=== PATIENT | male | born 1985 ===

== ENCOUNTER 2020-07-07 21:50 | Emergency (ER) | payer SELFPAY ==
[2020-07-07 22:50] VITALS: BP 120/83
--- NOTE | 2020-07-08 01:26 | Cat Scan Report ---
CT FACIAL BONES WO CON INDICATION / CLINICAL INFORMATION: Facial trauma during a soccer game, nosebleed and slight deformity . TECHNIQUE: All CT scans at this location are performed using CT dose reduction for ALARA by means of automated exposure control. COMPARISON: None available. FINDINGS: There is an acute, mildly comminuted fracture of the nasal bone bilaterally with mild deviation to th e left. There is mild mucosal thickening involving multiple ethmoid air cells bilaterally. There is m ild mucosal thickening involving both maxillary antra inferiorly. No air-fluid levels are seen. The m astoid air cells are clear. No other facial bone fractures are identified. The orbits are intact. IMPRESSION: Acute, mildly comminuted fracture of the nasal bone with mild deviation to the left. Signer Name: Silver Fofana MD Signed: 07/08/2020 1:22 AM Workstation Name: [id number]
--- NOTE | 2020-07-08 03:05 | Emergency Department Report ---
ED General Adult HPI - General Chief complaint: Nosebleed Stated complaint: NOSE INJURY Source: patient Mode of arrival: Ambulatory Limitations: No Limitations - History of Present Illness Initial comments: Patient is a 34-year-old male with no past medical history presents to the ED with acute onset persistent nosebleed with mildly swollen and deformed nose after being elbowed on the face during a soccer match about 3 hours ago. Patient states that he immediately started having persistent nosebleed which has since resolved on arrival in the ED. Patient states that the only time he feels pain is when the nose is palpated, but otherwise he denies any pain. Patient states that he has previously fractured his nasal bones and had to undergo surgery. Patient denies loss of consciousness, facial pain, dizziness, syncope, headache, shortness of breath, dental injuries, change in vision, nausea and vomiting, neck pain, back pain or lightheadedness. MD Complaint: Nosebleed; nasal swelling -: Sudden, hour(s) (3) Location: face Radiation: non-radiation Severity scale (0 -10): 1 Quality: dull Consistency: intermittent Improves with: rest Worsens with: other (palpation) Associated Symptoms: denies other symptoms. denies: confusion, chest pain, cough, diaphoresis, fever/chills, headaches, loss of appetite, malaise, nausea/vomiting, rash, seizure, shortness of breath, syncope, weakness Treatments Prior to Arrival: none - Related Data Previous Rx's Medication Instructions Recorded Last Taken Type Amoxicillin/Potassium Clav 1 each PO Q12H #20 tablet 07/08/20 Unknown Rx [Augmentin 875-125 Tablet] Ibuprofen [Motrin] 800 mg PO Q8HR PRN #30 tablet 07/08/20 Unknown Rx Allergies Allergy/AdvReac Type Severity Reaction Status Date / Time No Known Allergies Allergy Unverified 07/07/20 22:49 ED Review of Systems ROS: Stated complaint: NOSE INJURY Other details as noted in HPI Constitutional: denies: chills, fever Eyes: denies: eye pain, eye discharge, vision change ENT: epistaxis, other (nasal swelling). denies: ear pain, throat pain, dental pain Respiratory: denies: cough, shortness of breath, wheezing Cardiovascular: denies: chest pain, palpitations Endocrine: no symptoms reported Gastrointestinal: denies: abdominal pain, nausea, diarrhea Genitourinary: denies: urgency, dysuria Musculoskeletal: denies: back pain, joint swelling, arthralgia Skin: denies: rash, lesions Neurological: denies: headache, weakness, paresthesias Psychiatric: denies: anxiety, depression Hematological/Lymphatic: denies: easy bleeding, easy bruising ED Past Medical Hx - Past Medical History Previous Medical History?: No - Medications Home Medications: Home Medications Medication Instructions Recorded Confirmed Last Taken Type Amoxicillin/Potassium Clav 1 each PO Q12H #20 tablet 07/08/20 Unknown Rx [Augmentin 875-125 Tablet] Ibuprofen [Motrin] 800 mg PO Q8HR PRN #30 tablet 07/08/20 Unknown Rx ED Physical Exam - General Limitations: No Limitations General appearance: alert, in no apparent distress - Head Head exam: Present: atraumatic, normocephalic, normal inspection - Eye Eye exam: Present: normal appearance, PERRL, EOMI Pupils: Present: normal accommodation - ENT ENT exam: Present: mucous membranes moist, TM's normal bilaterally, normal external ear exam, other (Mildly swollen and deviated nose with mild tenderness to palpation; nosebleed resolved) - Neck Neck exam: Present: normal inspection, full ROM - Respiratory Respiratory exam: Present: normal lung sounds bilaterally. Absent: respiratory distress, wheezes, rales, rhonchi, chest wall tenderness, accessory muscle use, decreased breath sounds, prolonged expiratory - Cardiovascular Cardiovascular Exam: Present: regular rate, normal rhythm, normal heart sounds. Absent: systolic murmur, diastolic murmur, rubs, gallop - GI/Abdominal GI/Abdominal exam: Present: soft, normal bowel sounds. Absent: tenderness, guarding, rebound, hyperactive bowel sounds, hypoactive bowel sounds, organomegaly - Extremities Exam Extremities exam: Present: normal inspection, full ROM, normal capillary refill - Back Exam Back exam: Present: normal inspection, full ROM. Absent: tenderness, CVA tenderness (R), CVA tenderness (L), muscle spasm - Neurological Exam Neurological exam: Present: alert, oriented X3, CN II-XII intact, normal gait, reflexes normal - Psychiatric Psychiatric exam: Present: normal affect, normal mood - Skin Skin exam: Present: warm, dry, intact, normal color. Absent: rash ED Course Vital Signs 07/07/20 22:49 Temperature 98 F Pulse Rate 86 Respiratory 18 Rate Blood Pressure 120/83 [Right] O2 Sat by Pulse 100 Oximetry - Reevaluation(s) Reevaluation #1: 07/08/20 03:11 I paged and discussed the patient's case with the ENT physician on-call at [facility] Dr. Mikel Baumann who advised that the patient may need to follow-up with a plastic surgeon in his department Dr Cuong Elliott as an outpatient for further evaluation the next 3 to 5 days. 07/08/20 03:23 ED Medical Decision Making - Radiology Data Radiology results: report reviewed, image reviewed [facility] [address] [place] [address] Cat Scan Report Signed Patient: LEIGH ANN MEEKS MR#: [id number] [birth year] : 1985 Acct:[id number] Age/Sex: 34 / M ADM Date: 07/07/20 Loc: ED Attending Dr: Ordering Physician: SEVERINO NEAL Date of Service: 07/08/20 Procedure(s): CT facial bones wo con Accession Number(s): [id number] cc: SEVERINO NEAL CT FACIAL BONES WO CON INDICATION / CLINICAL INFORMATION: Facial trauma during a soccer game, nosebleed and slight deformity. TECHNIQUE: All CT scans at this location are performed using CT dose reduction for ALARA by means of automated exposure control. COMPARISON: None available. FINDINGS: There is an acute, mildly comminuted fracture of the nasal bone bilaterally with mild deviation to the left. There is mild mucosal thickening involving multiple ethmoid air cells bilaterally. There is mild mucosal thickening involving both maxillary antra inferiorly. No air- fluid levels are seen. The mastoid air cells are clear. No other facial bone fractures are identified. The orbits are intact. IMPRESSION: Acute, mildly comminuted fracture of the nasal bone with mild deviation to the left. Signer Name: Silver Fofana MD Signed: 07/08/2020 1:22 AM Workstation Name: [id number] Transcribed By: RT Dictated By: Silver Fofana MD Electronically Authenticated By: Silver Fofana MD Signed Date/Time: 07/08/20121 DD/ 8 TD/TT: - Medical Decision Making This is a 34-year-old male with no past medical history presents to the ED with acute onset persistent nosebleed with mildly swollen and deformed nose after being elbowed on the face during a soccer match about 3 hours ago. Patient states that he immediately started having persistent nosebleed which has since resolved on arrival in the ED. Patient states that the only time he feels pain is when the nose is palpated, but otherwise he denies any pain. Patient states that he has previously fractured his nasal bones and had to undergo surgery. In the ED, patient is alert and oriented x3 and is not in any distress. Patient's vital signs are stable. The nosebleed has resolved. The physical exam reveals mild swelling of the nose and mild tenderness to palpation. Patient was treated for pain in the ED. Facial bone CT scan without contrast showed acute, mildly comminuted fracture of the nasal bone with mild deviation to the left. I therefore paged and discussed the patient's case with the ENT physician on-call at [facility] Dr. Mikel Baumann who advised that the patient needs to follow-up as an outpatient with the plastic surgeon in his department doctor Cuong Elliott in the next 3 to 5 days for reevaluation. He advised that the patient be advised to call Dr. Elliott to schedule a follow-up appointment. On reevaluation, patient is alert and oriented x4, is not in any distress, his pain is well controlled medications. Patient was therefore discharged home on pain medication and prophylactic antibiotics and was advised to contact the plastic surgeon Dr. Nara Upton at [facility] for follow-up and further evaluation. Patient was otherwise advised return to the ED immediately if symptoms get worse. - Differential Diagnosis Facial bone fracture; nasal bone fracture; facial contusion; Critical care attestation.: If time is entered above; I have spent that time in minutes in the direct care of this critically ill patient, excluding procedure time. ED Disposition Clinical Impression: Acute anterior epistaxis Nasal bone fractures Qualifiers: Encounter type: initial encounter Fracture type: closed Qualified Code(s): S02.2XXA - Fracture of nasal bones, initial encounter for closed fracture Contusion of face Qualifiers: Encounter type: initial encounter Qualified Code(s): S00.83XA - Contusion of other part of head, initial encounter Disposition: TO HOME OR SELFCARE Is pt being admited?: No Does the pt Need Aspirin: No Condition: Stable Instructions: Nasal Fracture, [id number], Facial or Scalp Contusion, [id number], Nosebleed, [id number] Additional Instructions: The facial CT scan without contrast showed acute, mildly comminuted fracture of the nasal bone with mild deviation to the left. There is no other bone fracture identified on the imaging report. Therefore take medications with food, drink plenty of fluids and follow-up with the ENT physician Prescriptions: Amoxicillin/Potassium Clav [Augmentin 875-125 Tablet] 1 each PO Q12H #20 tablet Ibuprofen [Motrin] 800 mg PO Q8HR PRN #30 tablet PRN Reason: Pain , Severe (7-10) Referrals: DR. CUONG ELLIOTT, PLASTIC SURGEON [Other] - 3-5 Days Time of Disposition: 03:13 Print Language: DJIBOUTIAN
== END 2020-07-08 03:55 | disposition home or self-care (01) ==
LOC: ED 21:50
DX: S02.2XXA Fracture of nasal bones, initial encounter for closed fracture (principal); S00.83XA Contusion of other part of head, initial encounter; Z79.899 Other long term (current) drug therapy; X58.XXXA Exposure to other specified factors, initial encounter; Y93.89 Activity, other specified; Y92.89 Other specified places as the place of occurrence of the external cause; Y99.8 Other external cause status
CPT/HCPCS: 70486; 99283